=== PATIENT | female | born 1965 | race Caucasian/White ===

== ENCOUNTER 2018-12-14 09:58 | Observation (INO) | payer OTHER ==
[2018-12-14] VITALS (24 sets, daily range): BP systolic 110–144; BP diastolic 66–82; PULSE 75–99; RESP 14–25; Ht 149.9 cm; Wt 60.3 kg
[~2018-12-14] VITALS: Ht 149.9 cm; Wt 60.3 kg
[2018-12-14] MEDS: SOD CHLORIDE 0.9% 1,000 ML IV SCH (11:12)
[2018-12-14] MEDS ORDERED: CEFAZOLIN 1 GM/50 ML (PMX) 50 ML IVPB SCH (14:30)
[2018-12-14] MEDS ORDERED: ISOSULFAN BLUE 1% 5 ML INJ SC ONE (14:35)
[2018-12-14] MEDS ORDERED: BUPIVACAINE 0.5% (SDV) 30 ML INJ ONE (14:35)
[2018-12-14] MEDS ORDERED: ROCURONIUM 50 MG INJ ONE (15:00)
[2018-12-14] MEDS ORDERED: DESFLURANE 15 MIN ONE (15:00)
[2018-12-14] MEDS ORDERED: LIDOCAINE 2% (SDV) 5 ML INJ ONE (15:00)
[2018-12-14] MEDS ORDERED: PROPOFOL 200 MG INJ ONE (15:00)
[2018-12-14] MEDS ORDERED: HYDROmorphONE 1 MG/5 ML IV SYRINGE IV PRN ×3 (15:00)
[2018-12-14] MEDS ORDERED: SUCCINYLCHOLINE CHLORIDE 100 MG/5 ML SYG IV ONE (15:00)
[2018-12-14] MEDS ORDERED: CEFAZOLIN 1 GM INJ ONE (15:07)
[2018-12-14] MEDS ORDERED: ONDANSETRON 4 MG INJ ONE (15:08)
[2018-12-14] MEDS ORDERED: POLYMYXIN/BACITRACIN 1L IRRIG ONE (15:39)
[2018-12-14] MEDS ORDERED: SUGAMMADEX SODIUM 200 MG/2 ML VIAL IV ONE (16:21)
[2018-12-14] MEDS ORDERED: HYDROmorphONE 0.5 MG/0.5 ML SYG SC PRN (17:00)
[2018-12-14] MEDS ORDERED: ONDANSETRON 4 MG INJ IV PRN (17:00)
[2018-12-14] MEDS ORDERED: ACETAMINOPHEN 325 MG TAB PO PRN (17:00)
[2018-12-14] MEDS: CEFAZOLIN 2 GM/50 ML (PMX) 50 ML IVPB SCH (17:00)
[2018-12-14] MEDS ORDERED: DIPHENHYDRAMINE 25 MG CAP PO PRN (17:00)
[2018-12-14] MEDS: D5W-0.45 NACL + KCL 20 MEQ 1,000 ML IV SCH (21:16)
[2018-12-14] MEDS: HYDROCODONE/APAP (5/325) TAB PO PRN (21:17)
[2018-12-15 00:15] VITALS: BP 115/75; PULSE 88
[2018-12-15 00:46] VITALS: BP 111/59; PULSE 86; RESP 19
[2018-12-15] MEDS: CEFAZOLIN 2 GM/50 ML (PMX) 50 ML IVPB SCH ×2 (01:05→08:41)
[2018-12-15 01:15] VITALS: BP 126/67; PULSE 77
[2018-12-15 01:32] VITALS: BP 112/65; PULSE 83; RESP 17
[2018-12-15] MEDS: D5W-0.45 NACL + KCL 20 MEQ 1,000 ML IV SCH ×2 (02:34→07:44)
[2018-12-15] MEDS: SOD CHLORIDE 0.9% 1,000 ML IV SCH (03:50)
[2018-12-15 07:25] VITALS: BP 112/68; PULSE 85
[2018-12-15] MEDS: HYDROCODONE/APAP (5/325) TAB PO PRN (07:42)
== END 2018-12-15 14:21 | disposition home or self-care (01) ==
LOC: SDS 09:58 → REC 16:52 → SDS 16:52 → MS1 19:48
PROVIDERS: ADMIT Surgery; ATTEND Surgery
DX: C50.912 Malignant neoplasm of unspecified site of left female breast (principal); Z17.0 Estrogen receptor positive status [ER+]
CPT/HCPCS: 19301; 38525; 38900; 80053; 81001; 82962; 85025; 85610; 85730; 88307; 93005; J0690; J1170; J2405; J3010; J3480; J7030; Z7500; Z7512; Z7610; G0378; Q9968